=== PATIENT | male | born 1955 | race Caucasian/White ===

== ENCOUNTER 2020-09-13 11:18 | Inpatient (IN) ==
[2020-09-13] MEDS ORDERED: SODIUM CHLORIDE 0.9% 500 ML IV STA (11:57)
[2020-09-13] MEDS ORDERED: ONDANSETRON INJ 2 MG/ML 2 ML VIAL IV STA (11:57)
[2020-09-13] MEDS ORDERED: PANTOprazole 40 MG in SYRINGE 0 ML IV ONE ×2 (11:58→16:30)
[2020-09-13] MEDS ORDERED: FAMOTIDINE 20MG IV PUSH 20 MG/5 ML SYR IV STA (11:58)
[2020-09-13] MEDS ORDERED: SODIUM CHLORIDE 0.9% 250 ML IV PRN (11:58)
[2020-09-13] MEDS ORDERED: LIDOCAINE/PRILOCAINE 2.5% EA CRM EXT ONE (12:18)
--- NOTE | 2020-09-13 12:20 | Emergency Department Note ---
Impression & Plan Gastrointestinal hemorrhage with hematemesis, Adenocarcinoma, Upper gastrointestinal hemorrhage ED Provider Note NAME: MARIFER MACIAS AGE: 65 SEX: M : 1955 ARRIVES VIA: Ambulance INFORMANT: Patient, ED PROVIDER(S): Jose Wharton DO CHIEF COMPLAINT: GI bleeding HPI: The patient is a 65-year-old male who presented to the emergency department with his son for an evaluation of GI bleeding. The patient is noticed dark stool as well as hematemesis. 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 The patient started noticing symptoms over the course of the weekend. He does be history of alcohol as well as tobacco use. He was seen at his oncology office and had laboratory studies drawn. He was t hen sent immediately to the emergency department because of severe upper GI bleeding. The patient denies having any recent trauma. He states he has been compliant with all his outpatient medicines. At this time he does not take any blood thinners. The patient is being treated with chemotherapy but he has not had radiation or surgery for this cancer. The patient complains of shortness of breath as well as generalized weakness. He notices lower extremity swelling as well. He states his symptoms are moderate to severe. He is not had any episodes of emesis since coming to the emergency department but did have an episode of emesis in the office. ROS: See above HPI for pertinent positives & negatives. A total of 10 systems reviewed and were otherwise negative. PAST MEDICAL HISTORY: See Below PAST SURGICAL HISTORY: See Below FAMILY HISTORY: See Below SOCIAL HISTORY: See Below HOME MEDICATIONS: See Below ALLERGIES: See Below VITALS: See Below PHYSICAL EXAMINATION: GENERAL: The patient is awake and alert. He is very anxious appearing and appears ill. EYES: The conjunctivae are clear. The pupils are round and reactive. EARS, NOSE, MOUTH AND THROAT: The nose is without any evidence of any deformity. NECK: The neck is nontender and supple. RESPIRATORY: Normal respiratory effort is noted there is no evidence of wheezing rhonchi or rales CARDIOVASCULAR: Regular rate and rhythm noted there no murmurs rubs or gallops normal S1 normal S2. GASTROINTESTINAL: The abdomen is soft and nondistended. There is no guarding rigidity appreciated. MUSCULOSKELETAL/EXTREMITIES: There is no evidence of gross deformity full range of motion is noted in the hips and shoulders. SKIN: And mottled. Trace pedal edema was noted bilaterally. NEUROLOGIC: Patient is awake alert and oriented x3. MEDICAL DECISION MAKING: The patient is a 65-year-old male who presented to the emergency department for upper GI bleeding. The patient has a history of esophageal cancer. It now appears to be metastatic and also invading his upper stomach. He had episodes of black stool as well as hematemesis. He was treated with proton pump inhibitors as well as H2 blockers. He also received blood transfusion in the emergency department. I discussed the patient's laboratory and radiographic studies with him. Initially he asked to be transferred to a tertiary center. I discussed his case with the roll icer machine as well as the GI group at [facility]. At this time they do feel the patient's condition is severe and may be terminal. They asked that we discuss his case with our admitting team here and described to him what interventions may not be indicated at this time. The patient was very agreeable to this conversation. He would like us to involve his primary oncologist. I discussed his case with the [facility] hospitalist group. They have agreed to evaluate the patient in the emergency department. They will involve the patient's primary oncologist to determine if any further treatment would be helpful or if the patient should be considered for palliative care. I did consent the patient for blood. Triage Nursing notes reviewed. Prior medical records reviewed Vital Signs: reviewed and remarkable for no significant abnormalities Differential diagnosis: Diverticulosis, AVM, coagulopathy, colitis, inflammatory bowel disease, malignancy, Paty-Sultana tear, esophagitis, peptic ulcer disease, variceal bl eed, gastritis, epistaxis, fissure, hemorrhoids, as well as other pathologies. ER treatment provided: See below Diagnostics interpreted by me: ECG: EKG was obtained in the emergency department. My interpretation is normal sinus rhythm at 88 bpm. Right bundle branch block pattern was noted with diffuse ST segment abnormalities. No previous tracing was available. Cardiac Monitoring: An order was placed for continuous cardiac monitoring. The monitor shows a rate of 85 bpm with sinus rhythm. Laboratory studies: As stated above and show below. Imaging studies: See below Consultation(s): 1432: I discussed this case with Dr. Mishra who is on-call for critical care at [facility]. We also had the ribbon inker on the line as well. We discussed the patient as well as his presentation. It is felt at this time that he may require more of a palliative approach to his treatment. I will discuss this with the hospitalist group. 1440: I discussed this case with Lacy who is on-call for the [facility] hospitalist group. They will evaluate the patient in the emergency department for further management. ED COURSE: Procedures: none PDMP:reviewed and no issues Critical Care: I have personally spent greater than 65 minutes of critical care time in the direct management of this patient. This includes bedside care, interpretation of diagnostic studies, and testing, discussion with consultants, patient, and family members, and other required patient management activities. This 63 cristy jass is in excess of all separately billable procedures. Past Med/Surg History Medical History (Updated 09/13/20 @ 18:16 by Jose Wharton DO) Adenocarcinoma metastatic GE junction adenocarcinoma, mets liver, +lung nodules CAD (coronary artery disease) Esophageal cancer History of 2018 novel coronavirus disease (COVID-19) History of stomach cancer HLD (hyperlipidemia) HTN (hypertension) Iron deficiency anemia Ischemic cardiomyopathy NSTEMI (non-ST elevated myocardial infarction) Surgical History (Updated 09/13/20 @ 15:01 by Dayna Valera PA-C) History of esophagogastroduodenoscopy (EGD) 10/27/2019- EGD/EUS [facility] - partially obstructing, tumor at GE junction 5cm CBD/sludge in gallbladder/mass at GE junction, 2 enlarged lymph nodes in lower paraesophageal mediastinum Hx of heart bypass surgery 2014 Social History Smoking Status: Current every day smoker Preferred Language: Kazakh Feels Safe at Home: Yes Allergies Allergies Allergy/AdvReac Type Severity Reaction Status Date / Time No Known Allergies Allergy Verified 05/30/20 08:34 Home Meds Home Medications Medication Instructions Recorded Confirmed acetaminophen 500 mg capsule 500 mg PO Q6H PRN 05/23/20 09/13/20 atorvastatin 40 mg tablet 40 mg PO QPM 09/13/20 09/13/20 carvedilol 3.125 mg tablet 3.125 mg PO BID 09/13/20 09/13/20 clobetasol 0.05 % topical cream 1 applic TOPICAL HS PRN 09/13/20 09/13/20 desonide 0.05 % topical cream 1 applic TOPICAL HS PRN 09/13/20 09/13/20 isosorbide mononitrate 30 mg 30 mg PO DAILY 09/13/20 09/13/20 tablet,extended release 24 hr lidocaine-prilocaine 2.5 %-2.5 % 1 applic TOPICAL DAILY 09/13/20 09/13/20 topical cream lisinopril 2.5 mg tablet 2.5 mg PO DAILY 09/13/20 09/13/20 loratadine 10 mg tablet 10 mg PO Q48H 09/13/20 09/13/20 omeprazole 40 mg capsule,delayed 40 mg PO DAILY 09/13/20 09/13/20 release Results & Data (ED) Vital Signs Vital Signs - 24 hr 09/13/20 11:39 09/13/20 11:57 09/13/20 13:23 Temperature 36.5 C 36.5 C Temperature Source Oral Oral Pulse Rate 87 83 Pulse Rhythm Pulse Strength Respiratory Rate 16 14 Respiratory Depth Normal Blood Pressure 119/51 L 119/54 L Blood Pressure Mean 73 75 Blood Pressure Position Lying Pulse Oximetry 99 98 100 Oxygen Delivery Method Room Air Room Air Sepsis Recent Fever Within 48 Hours No Sepsis New/Unexplained Change in Mental Status No Sepsis Action Taken by Nursing No Action Required 09/13/20 13:45 09/13/20 14:00 09/13/20 14:30 Temperature 36.5 C 36.5 C 36.6 C Temperature Source Oral Oral Oral Pulse Rate 79 80 83 Pulse Rhythm Regular Pulse Strength Normal Respiratory Rate 14 15 15 Respiratory Depth Blood Pressure 122/56 L 131/58 L 124/44 L Blood Pressure Mean 78 82 70 Blood Pressure Position Sitting Pulse Oximetry 100 99 100 Oxygen Delivery Method Sepsis Recent Fever Within 48 Hours Sepsis New/Unexplained Change in Mental Status Sepsis Action Taken by Nursing 09/13/20 15:30 09/13/20 15:51 09/13/20 15:52 Temperature 37.0 C 36.4 C L Temperature Source Oral Oral Pulse Rate 83 79 78 Pulse Rhythm Regular Pulse Strength Normal Respiratory Rate 16 15 19 Respiratory Depth Blood Pressure 133/70 156/61 H 156/61 H Blood Pressure Mean 91 92 92 Blood Pressure Position Sitting Sitting Pulse Oximetry 100 92 99 Oxygen Delivery Method Sepsis Recent Fever Within 48 Hours Sepsis New/Unexplained Change in Mental Status Sepsis Action Taken by Nursing 09/13/20 15:53 09/13/20 16:15 09/13/20 16:30 Temperature 36.4 C L 36.9 C 36.6 C Temperature Source Oral Oral Oral Pulse Rate 77 84 80 Pulse Rhythm Regular Regular Pulse Strength Normal Normal Respiratory Rate 16 20 15 Respiratory Depth Blood Pressure 156/61 H 120/60 152/61 H Blood Pressure Mean 92 80 91 Blood Pressure Position Sitting Lying Pulse Oximetry 98 99 100 Oxygen Delivery Method Sepsis Recent Fever Within 48 Hours Sepsis New/Unexplained Change in Mental Status Sepsis Action Taken by Nursing 09/13/20 17:00 09/13/20 17:50 Temperature 36.5 C 36.6 C Temperature Source Oral Oral Pulse Rate 77 80 Pulse Rhythm Pulse Strength Respiratory Rate 16 12 Respiratory Depth Blood Pressure 140/58 L 132/62 Blood Pressure Mean 85 85 Blood Pressure Position Sitting Pulse Oximetry 100 100 Oxygen Delivery Method Sepsis Recent Fever Within 48 Hours Sepsis New/Unexplained Change in Mental Status Sepsis Action Taken by Detention Medications Current Medication List: was personally reviewed by me Laboratory Data Attestation: I reviewed the patient's lab results. Result diagrams: 09/13/20 12:01 09/13/20 12:01 Lab Results 09/13/20 09/13/20 09/13/20 Range/Units 12:01 12:01 12:01 WBC 4.23 L (4.8-10.8) K/uL RBC 2.06 L (4.7-6.1) M/uL Hgb 6.5 L* (14.0-18.0) g/dL Hct 20.1 L* (42-52) % MCV 97.6 (80-100) fL MCH 31.6 (25-34) pg MCHC 32.3 (32-36) g/dL RDW Std Deviation 71.9 H (36.4-46.3) fL RDW Coeff of Amaury 20.7 H (11.5-14.5) % Plt Count 239 (130-400) K/uL MPV 9.6 (7.4-10.4) fL Immature Gran % (Auto) 0.5 % Neut % (Auto) 64.4 % Lymph % (Auto) 20.3 % Bladen % (Auto) 14.4 % Eos % (Auto) 0.2 % Baso % (Auto) 0.2 % Neut # (Auto) 2.72 (1.4-6.5) K/uL Lymph # (Auto) 0.86 L (1.2-3.4) K/uL Bladen # (Auto) 0.61 H (0.11-0.59) K/uL Eos # (Auto) 0.01 (0-0.5) K/uL Baso # (Auto) 0.01 (0-0.2) K/uL Immature Gran # (Auto) 0.02 (0.00-0.02) K/uL Absolute Nucleated RBC 0.04 H (0-0) K/uL Nucleated RBC % (auto) 1.0 % Anisocytosis Present Ovalocytes 1+ PT 10.7 (9.0-12.0) Seconds INR 1.1 (0.9-1.1) APTT 23.1 (21.0-31.0) Seconds PTT Ratio 0.9 Sodium 140 (136-145) mmol/L Potassium 5.0 (3.5-5.1) mmol/L Chloride 113 H (98-107) mmol/L Carbon Dioxide 20 L (21-32) mmol/L Anion Gap 7.0 (3-11) BUN 68 H (7-18) mg/dl Creatinine 1.09 (0.6-1.4) mg/dl Est Cr Clr Drug Dosing 60.9 ml/min Est GFR ( Amer) 81.0 ml/min Est GFR (Non-Af Amer) 69.9 ml/min BUN/Creatinine Ratio 62.2 H (10-20) Glucose 110 H (70-99) mg/dl Calcium 8.7 (8.5-10.1) mg/dl Total Bilirubin 0.4 (0.2-1) mg/dl AST 471 H (15-37) U/L ALT 87 H (12-78) U/L Alkaline Phosphatase 310 H (45-117) U/L Troponin I 0.097 H* (0-0.045) ng/ml Total Protein 6.2 L (6.4-8.2) gm/dl Albumin 2.6 L (3.4-5.0) gm/dl Globulin 3.6 (2.5-4.0) gm/dl Albumin/Globulin Ratio 0.7 L (0.9-2) Lipase 183 (73-393) U/L COVID-19 Eval Order SARS-CoV-2, RNA, NAAT (NEGATIVE) Blood Type Antibody Screen Crossmatch 09/13/20 09/13/20 09/13/20 Range/Units 12:01 12:12 12:12 WBC (4.8-10.8) K/uL RBC (4.7-6.1) M/uL Hgb (14.0-18.0) g/dL Hct (42-52) % MCV (80-100) fL MCH (25-34) pg MCHC (32-36) g/dL RDW Std Deviation (36.4-46.3) fL RDW Coeff of Amaury (11.5-14.5) % Plt Count (130-400) K/uL MPV (7.4-10.4) fL Immature Gran % (Auto) % Neut % (Auto) % Lymph % (Auto) % Bladen % (Auto) % Eos % (Auto) % Baso % (Auto) % Neut # (Auto) (1.4-6.5) K/uL Lymph # (Auto) (1.2-3.4) K/uL Bladen # (Auto) (0.11-0.59) K/uL Eos # (Auto) (0-0.5) K/uL Baso # (Auto) (0-0.2) K/uL Immature Gran # (Auto) (0.00-0.02) K/uL Absolute Nucleated RBC (0-0) K/uL Nucleated RBC % (auto) % Anisocytosis Ovalocytes PT (9.0-12.0) Seconds INR (0.9-1.1) APTT (21.0-31.0) Seconds PTT Ratio Sodium (136-145) mmol/L Potassium (3.5-5.1) mmol/L Chloride (98-107) mmol/L Carbon Dioxide (21-32) mmol/L Anion Gap (3-11) BUN (7-18) mg/dl Creatinine (0.6-1.4) mg/dl Est Cr Clr Drug Dosing ml/min Est GFR ( Amer) ml/min Est GFR (Non-Af Amer) ml/min BUN/Creatinine Ratio (10-20) Glucose (70-99) mg/dl Calcium (8.5-10.1) mg/dl Total Bilirubin (0.2-1) mg/dl AST (15-37) U/L ALT (12-78) U/L Alkaline Phosphatase (45-117) U/L Troponin I (0-0.045) ng/ml Total Protein (6.4-8.2) gm/dl Albumin (3.4-5.0) gm/dl Globulin (2.5-4.0) gm/dl Albumin/Globulin Ratio (0.9-2) Lipase (73-393) U/L COVID-19 Eval Order Covid19 [facility] SARS-CoV-2, RNA, NAAT NEGATIVE (NEGATIVE) Blood Type A Positive Antibody Screen NEGATIVE Crossmatch See Detail Administered Medications Pantoprazole Sodium 40 mg/ (Dextrose) 100 mls @ 20 mls/hr IV Q5H CHRIS Stop: 10/13/20 16:29 Last Admin: 09/13/20 17:25 Dose: 8 mg/hr, 20 mls/hr Documented by: [id number] Morphine Sulfate (Morphine Sulfate 4 Mg/Ml 1 Ml Carp\Vial) 4 mg IV Q15M PRN PRN Reason: Pain Stop: 09/27/20 11:56 Last Admin: 09/13/20 17:03 Dose: 4 mg Documented by: [id number] Admin: 09/13/20 13:56 Dose: 4 mg Documented by: [id number] Admin: 09/13/20 12:29 Dose: 4 mg Documented by: [id number] Discontinued Medications Sodium Chloride (Nss) 500 mls @ 999 mls/hr IV .Q31M STA Stop: 09/13/20 12:27 Last Infusion: 09/13/20 13:43 Dose: 0 mls/hr Documented by: [id number] Admin: 09/13/20 12:29 Dose: 999 mls/hr Documented by: [id number] Pantoprazole Sodium 40 mg/ (Syringe) 10 mls @ 5 mls/min IV NOW ONE Stop: 09/13/20 11:59 Last Admin: 09/13/20 14:53 Dose: 5 mls/min Documented by: [id number] Famotidine (Pepcid 20mg Iv Push) 20 mg in 5 mls @ 2.5 mls/min IV NOW STA Stop: 09/13/20 11:59 Last Admin: 09/13/20 12:30 Dose: 2.5 mls/min Documented by: [id number] Sodium Chloride (Nss 1000ml) 500 mls @ 999 mls/hr IV .Q31M ONE Stop: 09/13/20 15:04 Last Infusion: 09/13/20 15:37 Dose: 0 mls/hr Documented by: [id number] Admin: 09/13/20 14:48 Dose: 999 mls/hr Documented by: [id number] Pantoprazole Sodium (Protonix Bolus/Drip) 0 mls @ 1 mls/hr IV ONE STA Stop: 09/13/20 16:07 Last Admin: 09/13/20 17:25 Dose: Not Given Documented by: [id number] Pantoprazole Sodium 40 mg/ (Syringe) 10 mls @ 5 mls/min IV NOW ONE Stop: 09/13/20 16:31 Last Admin: 09/13/20 17:24 Dose: 5 mls/min Documented by: [id number] Lidocaine/Prilocaine (Lidocaine/Prilocaine 2.5% Ea Crm) 1 ea EXT NOW ONE Stop: 09/13/20 12:19 Last Admin: 09/13/20 12:35 Dose: 1 ea Documented by: [id number] Ondansetron HCl (Ondansetron Inj 2 Mg/Ml 2 Ml Vial) 4 mg IV NOW STA Stop: 09/13/20 11:58 Last Admin: 09/13/20 12:29 Dose: 4 mg Documented by: [id number] Imaging Data Radiologist's Impression: Chest X-Ray 09/13/20 11:57 XR chest 1V portable CLINICAL HISTORY: vomiting COMPARISON STUDY: No previous studies for comparison. FINDINGS: No pneumothorax. No pleural effusion. Study is limited due to rotation. No large infiltrates or consolidative lesions are seen. Cardiomediastinal silhouette is within normal limits in size. No significant pulmonary vascular congestion.. Aorta is tortuous and calcified. Osseous structures: Mild degenerative changes of the spine. Left-sided Chemo-Port is seen with tip projecting to the anatomical region of inferior vena cava. Midline sternotomy wires are seen. IMPRESSION: 1. No large infiltrates or consolidative lesions. ACT 112: Negative or not required by law. The above report was generated using voice recognition software. It may contain grammatical, syntax or spelling errors. Electronically signed by: Shalini Sandhu DO 09/13/2020 12:57 PM KUB X-Ray 09/13/20 11:57 KUB HISTORY: Acute nausea with vomiting vomiting COMPARISON: Chest radiograph of same day FINDINGS: Nonobstructive bowel gas pattern. Indeterminate radiodensities measuring up to 6 mm project over the abdominal left upper quadrant, possibly external to the renal collecting system. No definite renal or ureteral calculi identified. No pneumatosis or pneumoperitoneum. Degenerative changes of the spine. Lumbar levoscoliosis. IMPRESSION: 1. Nonobstructive bowel gas pattern. 2. Calcifications project of the abdominal left upper quadrant measure up to 6 mm. Vascular calcifications versus renal calculi considered. ACT 112: Negative or not required by law. The above report was generated using voice recognition software. It may contain grammatical, syntax or spelling errors. Electronically signed by: Brayan Ybarra M.D. 09/13/2020 1:09 PM Discharge Plan Visit Data Chief Complaint: GI Bleed Stated Complaint: GI BLEED ED Provider: Jose Wharton Discharge Problem: Gastrointestinal hemorrhage with hematemesis, Adenocarcinoma, Upper gastrointestinal hemorrhage Patient Disposition: Admitted As Inpatient Condition: Good Forms Stand Alone Forms: My [facility] Prescriptions Prescriptions: No Action acetaminophen [Tylenol Extra Strength] 500 mg Capsule 500 mg PO Q6H PRN (Reason: Pain) RF: 0 atorvastatin 40 mg tablet 40 mg PO QPM RF: 0 isosorbide mononitrate 30 mg tablet extended release 24 hr 30 mg PO DAILY RF: 0 omeprazole 40 mg capsule,delayed release(DR/EC) 40 mg PO DAILY RF: 0 carvedilol 3.125 mg tablet 3.125 mg PO BID RF: 0 lidocaine-prilocaine 2.5-2.5 % cream 1 applic topical DAILY RF: 0 lisinopril 2.5 mg tablet 2.5 mg PO DAILY RF: 0 loratadine 10 mg tablet 10 mg PO Q48H RF: 0 desonide 0.05 % cream 1 applic TOPICAL HS PRN (Reason: Itching) RF: 0 clobetasol 0.05 % cream 1 applic TOPICAL HS PRN (Reason: Itching) RF: 0 Referrals Referrals: Trini Patton DO [Primary Care Provider] -
[2020-09-13 12:22] LABS: Hematocrit (blood only) 20.1 % (42-52); Hemoglobin 6.5 g/dL (14.0-18.0); Mean Corpuscular Hemoglobin 31.6 pg (25-34); Mean Corpuscular Hgb Conc 32.3 g/dL (32-36); Mean Corpuscular Volume 97.6 fL (80-100); Mean Platelet Volume 9.6 fL (7.4-10.4); Nucleated RBC # (auto) 0.04 K/uL (0-0); Platelet Count 239 K/uL (130-400); RDW Coefficient of Variation 20.7 % (11.5-14.5); RDW Standard Deviation 71.9 fL (36.4-46.3); Red Blood Count 2.06 M/uL (4.7-6.1); White Blood Count 4.23 K/uL (4.8-10.8)
[2020-09-13] MEDS: MoRPHine SULFATE 4 MG/ML 1 ML CARP\\VIAL IV PRN ×3 (12:29→17:03)
[2020-09-13 12:33] LABS: Anisocytosis Present; Basophils # (auto) 0.01 K/uL (0-0.2); Basophils % (auto) 0.2 %; Eosinophils # (auto) 0.01 K/uL (0-0.5); Eosinophils % (auto) 0.2 %; Immature Granulocytes # (auto) 0.02 K/uL (0.00-0.02); Immature Granulocytes % (auto) 0.5 %; Lymphocytes # (auto) 0.86 K/uL (1.2-3.4); Lymphocytes % (auto) 20.3 %; Monocytes # (auto) 0.61 K/uL (0.11-0.59); Monocytes % (auto) 14.4 %; Neutrophils # (auto) 2.72 K/uL (1.4-6.5); Neutrophils % (auto) 64.4 %; Ovalocytes 1+
[2020-09-13 12:43] LABS: Albumin Level 2.6 gm/dl (3.4-5.0); BUN Creatinine Ratio 62.2 (10-20); Calcium 8.7 mg/dl (8.5-10.1); Creatinine Clr Calc Pharmacy 60.9 ml/min; Est GFR (Non-African American) 69.9 ml/min
[2020-09-13 12:46] LABS: INR 1.1 (0.9-1.1); Partial Thromboplastin Ratio 0.9; Partial Thromboplastin Time 23.1 Seconds (21.0-31.0); Prothrombin Time 10.7 Seconds (9.0-12.0)
[2020-09-13 12:55] LABS: Albumin Globulin Ratio 0.7 (0.9-2); Bilirubin,Total 0.4 mg/dl (0.2-1); Globulin 3.6 gm/dl (2.5-4.0); Total Protein 6.2 gm/dl (6.4-8.2); Troponin I 0.097 ng/ml (0-0.045)
--- NOTE | 2020-09-13 12:58 | XRay Report ---
XR chest 1V portable CLINICAL HISTORY: vomiting COMPARISON STUDY: No previous studies for comparison. FINDINGS: No pneumothorax. No pleural effusion. Study is limited due to rotation. No large infiltrates or consolidative lesions are seen. Cardiomediastinal silhouette is within normal limits in size. No significant pulmonary vascular congestion.. Aorta is tortuous and calcified. Osseous structures: Mild degenerative changes of the spine. Left-sided Chemo-Port is seen with tip projecting to the anatomical region of inferior vena cava. Midline sternotomy wires are seen. IMPRESSION: 1. No large infiltrates or consolidative lesions. ACT 112: Negative or not required by law. The above report was generated using voice recognition software. It may contain grammatical, syntax o r spelling errors. Electronically signed by: Shalini Sandhu DO 09/13/2020 12:57 PM
--- NOTE | 2020-09-13 13:11 | XRay Report ---
KUB HISTORY: Acute nausea with vomiting vomiting COMPARISON: Chest radiograph of same day FINDINGS: Nonobstructive bowel gas pattern. Indeterminate radiodensities measuring up to 6 mm project over the abdominal left upper quadrant, possibly external to the renal collecting system. No definit e renal or ureteral calculi identified. No pneumatosis or pneumoperitoneum. Degenerative changes of t he spine. Lumbar levoscoliosis. IMPRESSION: 1. Nonobstructive bowel gas pattern. 2. Calcifications project of the abdominal left upper quadrant measure up to 6 mm. Vascular calcifica tions versus renal calculi considered. ACT 112: Negative or not required by law. The above report was generated using voice recognition software. It may contain grammatical, syntax o r spelling errors. Electronically signed by: Brayan Ybarra M.D. 09/13/2020 1:09 PM
[2020-09-13] MEDS ORDERED: SODIUM CHLORIDE 0.9% 1000ML 500 ML IV ONE (14:34)
[2020-09-13] MEDS ORDERED: PANTOPRAZOLE BOLUS/DRIP 1 EA IV STA (16:06)
[2020-09-13] MEDS ORDERED: ONDANSETRON INJ 2 MG/ML 2 ML VIAL IV PRN (16:06)
--- NOTE | 2020-09-13 16:08 | History & Physical Report ---
Date of Service September 13, 2020 Assessment & Plan (1) GI bleed: (2) Adenocarcinoma: Plan: Iron Deficiency Anemia Pt is 65 y/o M with PMH metastatic GE junction adenocarcinoma, lung nodules, with liver metastasis, iron deficiency anemia receiving IV iron, intermittent PRBC infusion, ischemic cardiomyopathy, NSTEMI, CAD, HTN, HLD presented to ER with complaint of hematemesis, melena x 4 days. Outpt Hgb: 6.3, received PRBC last week. Denies dizziness, syncope, SOB, CP, abdominal pain Following with Dr. Silverman-oncology. In ER pt afebrile, vitals stable. H/H: 6.5/20, BUN: 68, Cr: 1.09, AST: 471, ALT: 87, Alk Phos: 310, T Bili: 0.4. [place] [facility] [facility] - Dr. Mishra, and Dr. Merlos. Discussion was regarding GI not being able to help this pt as this type of bleed can not be completely stopped. Recommended discussion of palliative measures and pt transfer was decline. ER physician as well as myself and attending physician spoke to pt about diagnosis, poor prognosis and no surgical interventions were recommended. Dr Agustin spoke with Dr Silverman who recommended no further chemo treatments and palliative care. Pt and pt's son voice understanding In ER given 2 units PRBCs H&H Q6H PPI drip Clear liquids Morphine prn pain Palliative care consult CBC, CMP in am (3) HTN (hypertension): Plan: Hold lisinopril at this time Continue carvedilol (4) Ischemic cardiomyopathy: Plan: EF: 42% in 02/2020 echo Continue carvedilol, isosorbide DVT Prophylaxis -SCDs secondary to GI bleed DNR/DNI as per discussion with pt Follows with Dr Patton for routine care Pt was seen and care coordinated with Dr Agustin. See addendum (5) HLD (hyperlipidemia): History of Present Illness Chief Complaint: Hematemesis Primary Care Provider: Trini Patton DO Pt is 65 y/o M with PMH metastatic GE junction adenocarcinoma, lung nodules, with liver metastasis, iron deficiency anemia receiving IV iron, intermittent PRBC infusion, ischemic cardiomyopathy, NSTEMI, CAD, HTN, HLD presented to ER with complaint of hematemesis. Patient reports had started vomiting with blood 4 days ago. Also noted black-colored stools. Today with 2 episodes of hematemesis noted in clinic and was referred to ER. He also had Hgb: 6.3 outpatient. Patient denies dizziness, syncope, shortness of breath, chest pain. He is following with Dr. Silverman-oncology. Patient denies abdominal pain. H/O COVID 19 in 04/2020. Was on PPI but stopped taking and was recommended to resume by oncology. 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 Denies fever/chills, diaphoresis, DUMONT, vision changes, neck pain, orthopnea, palpitations, cough, sore throat, choking, otalgia, rhinorrhea, paresthesias, weakness, extremity edema, urinary symptoms. In ER pt with H/H: 6.5/20, BUN: 68, Cr: 1.09, AST: 471, ALT: 87, Alk Phos: 310, T Bili: 0.4. [place] [facility] [place] Wharton spoke [place] [facility] [place] - Dr. Mishra, and Dr. Merlos regarding this pt. Discussion was regarding GI not being able to help this pt as this type of bleed can not be completely stopped. Pt is oncology pt and may need to think about palliative measures and pt transfer was declined at this time. Dr Wharton had discussion with pt regarding his prognosis. Pt ok with being admitted, receiving PRBC transfusion, however voices would like to go home tomorrow if possible. In ER receiving 2 units PRBCs. Vitals stable. Allergies Allergy/AdvReac Type Severity Reaction Status Date / Time No Known Allergies Allergy Verified 05/30/20 08:34 Home Medications Medication Instructions Recorded Confirmed Type acetaminophen 500 mg capsule 500 mg PO Q6H PRN 05/23/20 09/13/20 History atorvastatin 40 mg tablet 40 mg PO QPM 09/13/20 09/13/20 History carvedilol 3.125 mg tablet 3.125 mg PO BID 09/13/20 09/13/20 History clobetasol 0.05 % topical cream 1 applic TOPICAL HS PRN 09/13/20 09/13/20 History desonide 0.05 % topical cream 1 applic TOPICAL HS PRN 09/13/20 09/13/20 History isosorbide mononitrate 30 mg 30 mg PO DAILY 09/13/20 09/13/20 History tablet,extended release 24 hr lidocaine-prilocaine 2.5 %-2.5 % 1 applic TOPICAL DAILY 09/13/20 09/13/20 History topical cream lisinopril 2.5 mg tablet 2.5 mg PO DAILY 09/13/20 09/13/20 History loratadine 10 mg tablet 10 mg PO Q48H 09/13/20 09/13/20 History omeprazole 40 mg capsule,delayed 40 mg PO DAILY 09/13/20 09/13/20 History release Past Med/Surg History Medical History (Updated 09/13/20 @ 17:22 by Dayna Valera PA-C) Adenocarcinoma metastatic GE junction adenocarcinoma, mets liver, +lung nodules CAD (coronary artery disease) Esophageal cancer History of 2018 novel coronavirus disease (COVID-19) History of stomach cancer HLD (hyperlipidemia) HTN (hypertension) Iron deficiency anemia Ischemic cardiomyopathy NSTEMI (non-ST elevated myocardial infarction) Surgical History (Updated 09/13/20 @ 15:01 by Dayna Valera PA-C) History of esophagogastroduodenoscopy (EGD) 10/27/2019- EGD/EUS [facility] - partially obstructing, tumor at GE junction 5cm CBD/sludge in gallbladder/mass at GE junction, 2 enlarged lymph nodes in lower paraesophageal mediastinum Hx of heart bypass surgery 2014 Social History Smoking Status: Current every day smoker Preferred Language: Barbadian Feels Safe at Home: Yes Review of Systems Review of Systems: All systems reviewed & are unremarkable except as noted in HPI & below Physical Exam Physical Exam: General: no acute distress, chronic ill appearing male, thin Head: normocephalic, atraumatic Eyes: conjunctiva non-injected, anicteric ENT: normal inspection external ears, nose, mucous membranes moist Neck: supple, trachea midline Lungs: clear, no respiratory distress, no wheezing/rhonchi/rales CV: RRR, no murmur, no pretibial edema Abd: normal BS, soft, non-tender Ext: no cyanosis, no calf tenderness Neuro: A&O x 3, no focal deficits noted, normal affect Skin: warm, dry Results & Data Results & Data ([facility]) Vital Signs (Past 12 Hours) Vital Signs Temp Pulse Resp BP Pulse Ox 09/13/20 15:53 36.4 C L 77 16 156/61 H 98 09/13/20 15:52 36.4 C L 78 19 156/61 H 99 09/13/20 15:51 79 15 156/61 H 92 09/13/20 15:30 37.0 C 83 16 133/70 100 09/13/20 14:30 36.6 C 83 15 124/44 L 100 09/13/20 14:00 36.5 C 80 15 131/58 L 99 09/13/20 13:45 36.5 C 79 14 122/56 L 100 09/13/20 13:23 36.5 C 83 14 119/54 L 100 09/13/20 11:57 98 09/13/20 11:39 36.5 C 87 16 119/51 L 99 Laboratory Results Short CBC 09/13/20 Range/Units 12:01 WBC 4.23 L (4.8-10.8) K/uL Hgb 6.5 L* (14.0-18.0) g/dL Hct 20.1 L* (42-52) % Plt Count 239 (130-400) K/uL BMP 09/13/20 12:01 Sodium 140 Potassium 5.0 Chloride 113 H Carbon Dioxide 20 L BUN 68 H Creatinine 1.09 Glucose 110 H Calcium 8.7 Cardiac Enzymes 09/13/20 Range/Units 12:01 Troponin I 0.097 H* (0-0.045) ng/ml Liver Function 09/13/20 Range/Units 12:01 Total Bilirubin 0.4 (0.2-1) mg/dl AST 471 H (15-37) U/L ALT 87 H (12-78) U/L Alkaline Phosphatase 310 H (45-117) U/L Albumin 2.6 L (3.4-5.0) gm/dl Diagnostic Findings Chest X-Ray 09/13/20 11:57 XR chest 1V portable CLINICAL HISTORY: vomiting COMPARISON STUDY: No previous studies for comparison. FINDINGS: No pneumothorax. No pleural effusion. Study is limited due to rotation. No large infiltrates or consolidative lesions are seen. Cardiomediastinal silhouette is within normal limits in size. No significant pulmonary vascular congestion.. Aorta is tortuous and calcified. Osseous structures: Mild degenerative changes of the spine. Left-sided Chemo-Port is seen with tip projecting to the anatomical region of inferior vena cava. Midline sternotomy wires are seen. IMPRESSION: 1. No large infiltrates or consolidative lesions. ACT 112: Negative or not required by law. The above report was generated using voice recognition software. It may contain grammatical, syntax or spelling errors. Electronically signed by: Shalini Sandhu DO 09/13/2020 12:57 PM KUB X-Ray 09/13/20 11:57 KUB HISTORY: Acute nausea with vomiting vomiting COMPARISON: Chest radiograph of same day FINDINGS: Nonobstructive bowel gas pattern. Indeterminate radiodensities measuring up to 6 mm project over the abdominal left upper quadrant, possibly external to the renal collecting system. No definite renal or ureteral calculi identified. No pneumatosis or pneumoperitoneum. Degenerative changes of the spine. Lumbar levoscoliosis. IMPRESSION: 1. Nonobstructive bowel gas pattern. 2. Calcifications project of the abdominal left upper quadrant measure up to 6 mm. Vascular calcifications versus renal calculi considered. ACT 112: Negative or not required by law. The above report was generated using voice recognition software. It may contain grammatical, syntax or spelling errors. Electronically signed by: Brayan Ybarra M.D. 09/13/2020 1:09 PM ECG Rate (beats per minute): 88 Rhythm: sinus rhythm Findings: + LAFB and + RBBB Comparison ECG Date: from (08/30/20. chronic LAFB and RBBB) Code Status & VTE Plan VTE Prophylaxis Plan VTE Prophylaxis will be ordered: Yes Supervising Physician Co-Signing Physician Notes I saw this patient with the physician business banking sales assistant, I participated in the history, physical, review of systems, and physical exam. I reviewed the medications with the patient and the physician business banking sales assistant and helped reconcile the medications. I helped take a detailed family and social history as well. I formulated the assessment and plan personally with the physician business banking sales assistant and went over it with the patient. ROS-No Headache, No Visual Changes, No Nausea, No Vomiting, No Fever, No Chills, No Neck Pain or Stiffness, No Chest Pain, No Palpitations, No SOB, No REED, No Cough, No Sputum, No Wheezing, No Abdominal Pain, No Diarrhea, No Hematemesis, No Hemoptysis, No Unexpected Weight Loss, No Flank pain, No Melena, No Hematochezia, No Frequency, No Urgency, No Burning, No Hematuria, No Rashes, No Diaphoresis. Appetite is Normal Physical Exam Gen-AAO x 3, NAD, Afebrile, Weak and Frail, Multiple areas of Ecchymosis Head-NCAT, EOMI, PERRLA, Anicteric Sclera, No Posterior Pharyngeal Erythema Neck-Supple, No JVD, No Thyromegaly, No Masses, No LAD, No Bruits Lungs-Clear to Auscultation Bilaterally, No Rales, No Rhonchi, No Wheezing, No Crepitus Chest-No S4, +S1, +S2, No S3, No Murmurs, No Rubs, No Gallops, No Ectopy Abdomen-Soft, Bowel Sounds Present, Non Tender, Non Distended, No Hepatomegaly, No Splenomegaly, No Palpable Masses, No Rebound, No Rigidity, No Guarding Musculoskeletal-Full Range of Motion Bilaterally, No CVAT Extremities-No Cyanosis, No Clubbing, No Edema Nuero-Cranial Nerves II-XII grossly intact, Motor WNL, DTRs WNL, Strength WNL, Non Focal Psych-Normal Mood
[2020-09-13] MEDS ORDERED: PANTOprazole 40 MG in DEXTROSE 5% 100 ML IV SCH ×2 (16:30→19:57)
--- NOTE | 2020-09-13 17:51 | Electrocardiogram Report ---
Test Reason : Blood Pressure : / mmHG Vent. Rate : 088 BPM Atrial Rate : 088 BPM P-R Int : 154 ms QRS Dur : 146 ms QT Int : 426 ms P-R-T Axes : 064 -60 081 degrees QTc Int : 515 ms Normal sinus rhythm Left atrial enlargement Right bundle branch block Left anterior fascicular block Abnormal ECG No previous ECGs available Confirmed by Arturo Vidales ([id number]) on 09/13/2020 5:51:21 PM Referred By: REFERRED SELF Confirmed By:Arturo Vidales
[2020-09-13] MEDS ORDERED: MoRPHine SULFATE 4 MG/ML 1 ML CARP\\VIAL IV PRN (19:57)
[2020-09-13] MEDS ORDERED: PANTOprazole 80 MG in DEXTROSE 5% 100 ML IV ONE (19:57)
[2020-09-13] MEDS ORDERED: DESONIDE CR 15 GM TUBE EXT PRN (19:57)
[2020-09-13] MEDS ORDERED: ACETAMINOPHEN 325 MG TAB PO PRN (19:57)
[2020-09-13 20:45] LABS: Hematocrit (blood only) 27.1 % (42-52); Hemoglobin 8.7 g/dL (14.0-18.0)
[2020-09-13 20:50] VITALS: O2SAT 99
[2020-09-13] MEDS ORDERED: carvediloL 3.125 MG TAB PO SCH (21:00)
[2020-09-13 22:51] VITALS: BP 125/63; PULSE 81; TEMP 98.4
--- NOTE | 2020-09-13 23:44 | Discharge Summary ---
Date of Service September 13, 2020 Admission HPI Per Admitting Provider Pt is 65 y/o M with PMH metastatic GE junction adenocarcinoma, lung nodules, with liver metastasis, iron deficiency anemia receiving IV iron, intermittent PRBC infusion, ischemic cardiomyopathy, NSTEMI, CAD, HTN, HLD presented to ER with complaint of hematemesis. Patient reports had started vomiting with blood 4 days ago. Also noted black-colored stools. Today with 2 episodes of hematemesis noted in clinic and was referred to ER. He also had Hgb: 6.3 outpatient. Patient denies dizziness, syncope, shortness of breath, chest pain. He is following with Dr. Silverman-oncology. Patient denies abdominal pain. H/O COVID 19 in 04/2020. Was on PPI but stopped taking and was recommended to resume by oncology. 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 Denies fever/chills, diaphoresis, DUMONT, vision changes, neck pain, orthopnea, palpitations, cough, sore throat, choking, otalgia, rhinorrhea, paresthesias, weakness, extremity edema, urinary symptoms. In ER pt with H/H: 6.5/20, BUN: 68, Cr: 1.09, AST: 471, ALT: 87, Alk Phos: 310, T Bili: 0.4. Pt had requested transfer to [facility] [place]. Dr Wharton spoke with [facility] [place] - Dr. Mishra, and Dr. Merlos regarding this pt. Discussion was regarding GI not being able to help this pt as this type of bleed can not be completely stopped. Pt is oncology pt and may need to think about palliative measures and pt transfer was declined at this time. Dr Wharton had discussion with pt regarding his prognosis. Pt ok with being admitted, receiving PRBC transfusion, however voices would like to go home tomorrow if possible. In ER receiving 2 units PRBCs. Vitals stable. Discharge Data Consultations 09/13/20 14:41 ED Decision to Admit Stat 09/13/20 15:37 Consult Palliative Care Routine Hospital Course (1) Upper gastrointestinal hemorrhage: Patient presented with UGI B attributed to gastroesophageal carcinoma. Initial hemoglobin 6.5. (as per admission HP) ER spoke with [facility] [place] - Dr. Mishra, and Dr. Merlos. Discussion was regarding GI not being able to help this pt as this type of bleed can not be completely stopped. Recommended discussion of palliative measures and pt transfer was declined. ER physician as well as myself and attending physician spoke to pt about diagnosis, poor prognosis and no surgical interventions were recommended. Dr Agustin spoke with Dr Silverman who recommended no further chemo treatments and palliative care. IV PPI initiated at the ER. Repeat hemoglobin after 2 units PRBC was 8.7. 09/14, 1045PM Made aware by RN of patient request to leave hospital to AGAINST MEDICAL ADVICE. Patient still upset at [facility] refusal to accept transfer request from the emergency room. Patient upset that additional blood transfusion is not ordered following repeat hemoglobin of 8.7 after 1 unit PRBC transfusion. I explained to patient that blood transfusion not currently warranted with current hemoglobin and that decision for additional PRBC transfusion will depend on tomorrow morning's H&H. I counseled patient about potential complications of indiscriminate blood product transfusion. Patient feels that it is a "waste of time to use up a hospital bed if nothing is being done." I told patient that he is currently receiving PPI infusion meant to decrease stomach acid production that theoretically will worsen ongoing UGIB along. Patient informed that periodic H&H labs are ordered and a palliative care consult contemplated in a.m as per admission orders. Patient intent on departing hospital AGAINST MEDICAL ADVICE despite information/explanations provided and citation of risks/possible consequences arising from decision to leave AMA which includes continued GI bleed leading to as an extreme circumstance. Patient signed AMA papers.
[2020-09-14] MEDS ORDERED: ISOSORBIDE MONO EXTENDED REL 30 MG TABCR PO SCH (09:00)
== END 2020-09-14 00:20 | disposition left against medical advice (07) | DRG 378 ==
LOC: ED 11:18 → 2N 15:37 → SUATTDRO 15:37 → 2N 19:36